=== PATIENT | male | born 1980 | race Caucasian/White ===

== ENCOUNTER 2019-10-03 08:48 | Emergency (ER) | payer SELFPAY ==
--- NOTE | 2019-10-03 08:58 | ED.PDOC ---
History of Present Illness - General Chief Complaint: General Time Seen by Provider: 10/03/19 08:57 Source: patient, RN notes reviewed, Vital Signs reviewed - History of Present Illness Comments: Patient presents for evaluation of cough and congestion that began yesterday. He states that he has had chills without fevers. He notes that he has had myaglias and arthralgias. and son have recently had the flu. He denies any production to his cough. Notes that he is tolerating PO. Denies nausea, vomiting or diarrhea. Denies abdominal pain. Does smoke. No hx of COPD. Timing/Duration: yesterday Cough Quality/Degree: mild, dry cough Associated Symptoms: cough Allergies/Adverse Reactions: Allergies NO KNOWN ALLERGY Allergy (Verified 10/03/19 09:01) Home Medications: Ambulatory Orders Ondansetron Odt [Zofran ODT] 4 mg PO Q8H PRN #6 tab 10/03/19 Oseltamivir Capsule [Tamiflu] 75 mg PO DAILY 10 Days #10 capsule 10/03/19 Review of Systems - Review of Systems Constitutional: States: chills. Denies: fever Respiratory: States: cough. Denies: short of breath Cardiology: Denies: chest pain Gastrointestinal/Abdominal: Denies: abdominal pain Genitourinary: Denies: frequency Musculoskeletal: Denies: back pain Skin: Denies: rash Neurological: Denies: headache Hematologic/Lymphatic: Denies: easy bleeding Family Medical History - Family History Mother Family History: Unknown Physical Exam - Physical Exam General Appearance: Alert, Well Developed, Well Groomed, Well Hydrated, Well Nourished, Other - Appears uncomfortable Eye Exam: bilateral normal ENT Exam: nasal congestion Neck: full range of motion, supple, normal inspection, trachea midline Respiratory: lungs clear, normal breath sounds, no respiratory distress, no accessory muscle use Cardiovascular/Chest: regular rate, rhythm, no edema, no gallop, no murmur Gastrointestinal/Abdominal: normal bowel sounds, non tender, soft Extremity: no pedal edema Neurologic: alert, normal mood/affect, oriented x 3 Skin Exam: normal color, warm/dry Progress - Progress Progress: 10/03/19 09:25 Patient presents for evaluation of flu like symptoms. He was hemodynamically stable and non-toxic. There was no signs of pneumonia on physical exam. Exam and HPI were consistent with influenza, especially with recent sick contacts. Discussed treatment with tamiflu, which patient accepted. He is still in the window of treatment. Discussed side effects of the medication. Will discharge with Rx for Tamiflu and Zofran. Will follow-up with PCP for re-evaluation. Departure - Departure Clinical Impression: Influenza, Cough, Upper respiratory infection Disposition: Discharge to Home or Self Care Condition: Fair Departure Forms: ED Discharge - Pt. Copy, Patient Portal Self Enrollment Instructions: Flu, Adult (DC) Prescriptions: Ondansetron Odt [Zofran ODT] 4 mg PO Q8H PRN #6 tab PRN Reason: Nausea Oseltamivir Capsule [Tamiflu] 75 mg PO DAILY 10 Days #10 capsule Home Medications: Ambulatory Orders Ondansetron Odt [Zofran ODT] 4 mg PO Q8H PRN #6 tab 10/03/19 Oseltamivir Capsule [Tamiflu] 75 mg PO DAILY 10 Days #10 capsule 10/03/19 Comments: Alber Barrientos #[id number]
[2019-10-03 09:02] VITALS: BP 142/102; TEMP 97.1; O2SAT 98
== END 2019-10-03 09:14 | disposition home or self-care (01) ==
LOC: ER 08:48
DX: J11.1 Influenza due to unidentified influenza virus with other respiratory manifestations (principal); J06.9 Acute upper respiratory infection, unspecified

== ENCOUNTER 2020-01-31 15:05 | Emergency (ER) | payer SELFPAY ==
--- NOTE | 2020-01-31 16:17 | RAD ---
EXAM DESCRIPTION: Abdomen Series CLINICAL HISTORY: 39 years Male, brbpr, bright red blood per rectum COMPARISON: None. FINDINGS: Chest x-ray shows normal-sized heart with normal vascularity. The lungs are clear. No free air under the diaphragm. Paucity of bowel gas in the mid abdomen. Bowel gas pattern is unremarkable. Gallbladder clips in the right upper quadrant. Calcification in the left midabdomen is indeterminate. No renal calculi are identified. IMPRESSION: No acute process in the chest or abdomen. Electronically signed by: Dylan Robb MD 01/31/2020 4:15 PM CDT
[2020-01-31 16:56] VITALS: O2SAT 98
--- NOTE | 2020-01-31 17:12 | ED.PDOC ---
History of Present Illness - General Chief Complaint: GI Problem Stated Complaint: Blood in stool Time Seen by Provider: 01/31/20 15:30 Source: patient Exam Limitations: no limitations - History of Present Illness Initial Comments: The patient is a 39-year-old male presenting to the emergency room secondary to 2 episodes of bright red blood per rectum this morning. They were both with bowel movements. They were painless. No previous episodes of any GI bleeding. No nausea or vomiting. The patient does take Aleve with significant frequency. He does have some constipation problems. He denies any current external hemorrhoids. No weight changes. He does smoke. No weight loss. No family history of early GI cancers. No easy bruising or bleeding. No dizzi ness, syncope or near syncope. The patient did not experience any rectal bleeding during his stay here. Timing/Duration: 4-6 hours Severity: mild Improving Factors: nothing Worsening Factors: nothing Associated Symptoms: denies symptoms Allergies/Adverse Reactions: Allergies NO KNOWN ALLERGY Allergy (Verified 10/03/19 09:01) Home Medications: Ambulatory Orders Ondansetron Odt [Zofran ODT] 4 mg PO Q8H PRN #6 tab 10/03/19 Oseltamivir Capsule [Tamiflu] 75 mg PO DAILY 10 Days #10 capsule 10/03/19 Hydrocortisone 25 mg Supp [Anusol-HC Suppository] 1 ea [place] Q8HR #10 sup 01/31/20 Omeprazole 40 mg PO DAILY #30 cap 01/31/20 Sucralfate Tab [Carafate Tab] 1 gm PO QID #90 tab 01/31/20 Review of Systems - Review of Systems Constitutional: States: no symptoms reported EENTM: States: no symptoms reported Respiratory: States: no symptoms reported Cardiology: States: no symptoms reported Gastrointestinal/Abdominal: States: see HPI Genitourinary: States: no symptoms reported Musculoskeletal: States: no symptoms reported Skin: States: no symptoms reported Neurological: States: no symptoms reported Endocrine: States: no symptoms reported All other Systems: No Change from Baseline Past Medical History (General) - Patient Medical History Hx Seizures: No Hx Stroke: No Hx Dementia: No Hx Asthma: No Hx of COPD: No Hx Cardiac Disorders: No Hx Congestive Heart Failure: No Hx Pacemaker: No Hx Hypertension: Yes Hx Thyroid Disease: No Hx Diabetes: No Hx Gastroesophageal Reflux: No Hx Renal Disease: No Hx Cancer: No Hx of HIV: No Hx Hepatitis C: No Hx MRSA: No Surgical History: cholecystectomy - Vaccination History Hx Tetanus, Diphtheria Vaccination: No Hx Influenza Vaccination: No Hx Pneumococcal Vaccination: No - Social History Hx Tobacco Use: Yes Cigarettes Packs Per Day: 1 Hx Alcohol Use: Yes - Patient states he has been drinking alot more. Hx Substance Use: No Hx Substance Use Treatment: No Hx Depression: No - Female History Patient is a Female of Child Bearing Age (10 -59 yrs old): No Family Medical History - Family History Mother Family History: Unknown Physical Exam - Physical Exam General Appearance: Alert, Anxious, No apparent distress Eye Exam: bilateral normal Ears, Nose, Throat: hearing grossly normal, normal ENT inspection Neck: full range of motion, supple Respiratory: lungs clear, normal breath sounds, no respiratory distress, no accessory muscle use Cardiovascular/Chest: normal peripheral pulses, regular rate, rhythm, no edema Peripheral Pulses: radial,right: 2+, radial,left: 2+ Gastrointestinal/Abdominal: non tender, soft Rectal Exam: other - Normal rectal tone. Old skin tag from previous external hemorrhoid is noted. Mild dried blood at the rectum. Back Exam: normal inspection, no CVA tenderness Extremity: normal range of motion, non-tender, normal inspection, no pedal edema, normal capillary refill Neurologic: single stroke preformer II-XII nml as tested, alert, normal mood/affect, oriented x 3 Skin Exam: normal color Comments: Vital Signs - 24 hr 01/31/20 01/31/20 15:33 16:54 Temperature 98 F Pulse Rate [ 85 77 Pulse Ox] Respiratory 18 20 Rate Blood Pressure 137/96 162/104 [Left Arm] O2 Sat by Pulse 97 98 Oximetry Progress - Progress Progress: 01/31/20 17:13 The patient is a 39-year-old male presents emergency room secondary to 2 episodes of bright red blood per rectum today. Vital signs are stable and he has not had further bleeding since his arrival here. Hemoglobin is 17. Clinical exam is reassuring. Most likely source of the bleeding is either from gastric ulcers related to a aleve use or from an internal hemorrhoid, given his age. He is going to be placed on omeprazole and Carafate for the next month. He is also going to be written for Anusol suppositories to be used in case this is from a internal hemorrhoid. He needs to contact Dr. Magallanes Monday to get set up for upper and lower endoscopies. The patient is young however he does carry a significant added risk of smoking. Obviously if the patient has significant further bleeding episodes, then he is to return here for additional work-up and treatment as appropriate. Work-up here is otherwise been reassuring today. ER warnings are given. [email or web address] [id number] - Results/Orders Results/Orders: Acute abdominal series appears benign. See report for details. Laboratory Tests 01/31/20 01/31/20 01/31/20 15:47 15:47 15:47 WBC 8.3 RBC 5.05 Hgb 17.4 Hct 49.0 MCV 97.1 H MCH 34.4 H MCHC 35.4 RDW 12.8 Plt Count 237 MPV 7.5 Absolute Neuts (auto) 5.50 Absolute Lymphs (auto) 1.80 Absolute Monos (auto) 0.50 Absolute Eos (auto) 0.30 Absolute Basos (auto) 0.10 Neutrophils % 66.5 Lymphocytes % 22.0 Monocytes % 6.4 Eosinophils % 3.8 Basophils % 1.3 PT 10.1 INR 1.02 PTT (SP) 24.6 Sodium 137 Potassium 3.6 Chloride 102 Carbon Dioxide 26 Anion Gap 12.6 BUN 12 Creatinine 0.74 BUN/Creatinine Ratio 16.2 Random Glucose 87 Serum Osmolality 272.9 L Calcium 9.3 Total Bilirubin 0.6 AST 29 ALT 34 Alkaline Phosphatase 60 Serum Total Protein 7.9 Albumin 4.5 Globulin 3.4 Albumin/Globulin Ratio 1.3 Urine Color Urine Appearance Urine pH Ur Specific [place] Urine Protein Urine Glucose (UA) Urine Ketones Urine Blood Urine Nitrite Urine Bilirubin Urine Urobilinogen Ur Leukocyte Esterase Urine RBC Urine WBC Ur Epithelial Cells Urine Bacteria 01/31/20 16:23 WBC RBC Hgb Hct MCV MCH MCHC RDW Plt Count MPV Absolute Neuts (auto) Absolute Lymphs (auto) Absolute Monos (auto) Absolute Eos (auto) Absolute Basos (auto) Neutrophils % Lymphocytes % Monocytes % Eosinophils % Basophils % PT INR PTT (SP) Sodium Potassium Chloride Carbon Dioxide Anion Gap BUN Creatinine BUN/Creatinine Ratio Random Glucose Serum Osmolality Calcium Total Bilirubin AST ALT Alkaline Phosphatase Serum Total Protein Albumin Globulin Albumin/Globulin Ratio Urine Color Yellow Urine Appearance Clear Urine pH 5.5 Ur Specific [place] >= 1.030 Urine Protein Negative Urine Glucose (UA) Negative Urine Ketones Negative Urine Blood Negative Urine Nitrite Negative Urine Bilirubin Negative Urine Urobilinogen 0.2 Ur Leukocyte Esterase Negative Urine RBC 0 Urine WBC 0 Ur Epithelial Cells 1-3 Urine Bacteria Rare - EKG/XRAY/CT CT Ordered: No Departure - Departure Clinical Impression: Gastrointestinal bleeding Qualifiers: GI bleed type/associated pathology: unspecified gastrointestinal hemorrhage ty pe Qualified Code(s): K92.2 - Gastrointestinal hemorrhage, unspecified Disposition: Discharge to Home or Self Care Condition: Fair Departure Forms: ED Discharge - Pt. Copy, Patient Portal Self Enrollment Instructions: DI for Gastritis, Hemorrhoids (DC) Diet: regular diet - High-fiber. Add Metamucil to diet. Activity: increase activity as tolerated Prescriptions: Hydrocortisone 25 mg Supp [Anusol-HC Suppository] 1 ea [place] Q8HR #10 sup Omeprazole 40 mg PO DAILY #30 cap Sucralfate Tab [Carafate Tab] 1 gm PO QID #90 tab Home Medications: Ambulatory Orders Ondansetron Odt [Zofran ODT] 4 mg PO Q8H PRN #6 tab 10/03/19 Oseltamivir Capsule [Tamiflu] 75 mg PO DAILY 10 Days #10 capsule 10/03/19 Hydrocortisone 25 mg Supp [Anusol-HC Suppository] 1 ea [place] Q8HR #10 sup 01/31/20 Omeprazole 40 mg PO DAILY #30 cap 01/31/20 Sucralfate Tab [Carafate Tab] 1 gm PO QID #90 tab 01/31/20 Additional Instructions: The patient is a 39-year-old male presents emergency room secondary to 2 episodes of bright red blood per rectum today. Vital signs are stable and he has not had further bleeding since his arrival here. Hemoglobin is 17. Cli nical exam is reassuring. Most likely source of the bleeding is either from gastric ulcers related to a aleve use or from an internal hemorrhoid, given his age. He is going to be placed on omeprazole and Carafate for the next month. He is also going to be written for Anusol suppositories to be used in case this is from a internal hemorrhoid. He needs to contact Dr. Magallanes Monday to get set up for upper and lower endoscopies. The patient is young however he does carry a significant added risk of smoking. Obviously if the patient has significant further bleeding episodes, then he is to return here for additional work-up and treatment as appropriate. Work-up here is otherwise been reassuring today. The patient should also avoid Aleve for the near future. He should also take FiberCon or Metamucil once daily to help reduce constipation. ER warnings are given.
[2020-01-31] MEDS ORDERED: OMEPRAZOLE CAP 20 MG CAP PO ONE (17:17)
[2020-01-31] MEDS ORDERED: SUCRALFATE 1 GM/10 ML 1 GM UD PO ONE (17:17)
[2020-01-31 17:38] VITALS: BP 147/85; TEMP 97.8
== END 2020-01-31 17:30 | disposition home or self-care (01) ==
LOC: ER 15:05
DX: K92.2 Gastrointestinal hemorrhage, unspecified (principal); K64.8 Other hemorrhoids; I10 Essential (primary) hypertension; F17.200 Nicotine dependence, unspecified, uncomplicated